=== PATIENT | male | born 1990 | race Two or more races ===

== ENCOUNTER 2016-10-11 02:13 | Emergency (ER) | payer MEDICAID, OTHER ==
[2016-10-11] MEDS ORDERED: HALOPERIDOL LACT 5 MG/ML INJ ONE (02:23)
[2016-10-11] MEDS ORDERED: LORazepam 2 MG/ML INJ ONE (02:23)
--- NOTE | 2016-10-11 02:35 | EDPHY ---
H & P Source: Patient Exam Limitations: No limitations - Medical/Surgical History Hx Asthma: No Hx Chronic Respiratory Disease: No Hx Diabetes: No Hx Cardiac Disease: No Hx Renal Disease: No Hx Cirrhosis: No Hx Alcoholism: No Hx HIV/AIDS: No Hx Splenectomy or Spleen Trauma: No Other PMH: depression, anxiety, bipolar - Family History Significant Family History: No pertinent family hx - Social History Smoking Status: Current every day smoker Alcohol Use: Heavy Drug Use: Other Time Seen by Provider: 10/11/16 02:32 HPI/ROS: CHIEF COMPLAINT: Psychosis HISTORY OF PRESENT ILLNESS: Patient is a 26-year-old man brought from [place] for agitation and psychosis. [place] police state that they are familiar with him and he frequently makes false reports. Yesterday he reported a kidnapping and today he reported a disturbance. He was acting erratically and they decided to bring him in on a M1 hold. The other [facility] hospitals currently on divert. The patient answers questions but is fighting with police. He was restrained on arrival. He denies any health problems. Please states that he uses methamphetamine frequently. Patient denies any trauma. They also report that he has a history of depression and bipolar. REVIEW OF SYSTEMS: unable to obtain secondary to condition EXAM: GENERAL: Angry, wrestling with police HEAD: Atraumatic, normocephalic. EYES: Pupils equal round and reactive to light, extraocular movements intact, sclera anicteric, conjunctiva are normal. ENT: TMs normal, nares patent, oropharynx clear without exudates. Moist mucous membranes. NECK: Normal range of motion, supple without lymphadenopathy or JVD. LUNGS: Breath sounds clear to auscultation bilaterally and equal. No wheezes rales or rhonchi. HEART: Regular rate and rhythm without murmurs, rubs or gallops. ABDOMEN: Soft, nontender, normoactive bowel sounds. No guarding, no rebound. No masses appreciated. BACK: No CVA tenderness, no spinal tenderness, step-offs or deformities EXTREMITIES: Normal range of motion, no pitting or edema. No clubbing or cyanosis. Restrained NEUROLOGICAL: Cranial nerves II through XII grossly intact. Normal speech, normal gait. 5/5 strength, normal movement in all extremities, normal sensation PSYCH: Answers questions appropriately but agitated and illogical, rambling SKIN: Warm, dry, normal turgor, no visible rashes or lesions. (Aris Rodas) Constitutional: Initial Vital Signs Respiratory Rate 20 10/11/16 02:20 O2 Sat (%) 93 10/11/16 02:20 O2 Delivery Mode Room Air Allergies/Adverse Reactions: No Known Allergies Allergy (Unverified 08/22/15 19:50) Home Medications: Medication Instructions Recorded NK [No Known Home Meds] 08/22/15 Medical Decision Making ED Course/Re-evaluation: 0700: Patient signed out to me by Dr. Rodas at shift change. We are awaiting the results of the urinalysis. 1028: I personally evaluated the patient at this time after the nurse told me she thought his left extremities were far colder than his right. He is sleeping , localizes vigorous stimulation. His left hand and distal forearm feels cool relative to the right, his left leg below the knee feels cooler than the right, although the foot is not involved. No change in skin color. On exam he strong bilateral bilateral femoral, radial, dorsalis pedis pulses. Heart is regular. Lungs are clear to auscultation. He was undressed and his skin was examined. He has a midline anterior neck scab with some mild surrounding erythema, no purulent drainage. Trachea is midline. No evidence of track meraz or skin abscesses. 3:00 p.m.: I re-evaluated the patient. All of his extremities are abnormal temperature and color. He has been sleeping throughout the day. Has a blanket over his head when I enter the room. He wakens immediately when I move the blanket off his face. He says, "Get the fuck away from me". He tells me that he is tired. He will not offer any further information. He has not yet provided a urine sample. 3:40 p.m.: I re-evaluated the patient and told him that he needed to wake up and provide a urine sample. He did do so. He admits that he is sleeping off a methamphetamine binge. He will not talk to me about any psychiatric history that he might have. He denies suicidality or homicidality to me. (Shira Walker) 1600 care assumed by me from Dr. Walker pending mental health evaluation. 1635 patient seen by mental health. Patient is not suicidal or homicidal. He is not gravely disabled. He admits to meth use. No acute active psychiatric process at this time. He is farideh for safety. Will discharge with follow -up with his providers in [place]. (Massimo Olivares) 7:00 a.m.. the patient is sedated. We awaiting urinalysis but otherwise he is medically cleared. Since there is report of amphetamine they will likely completed 12 hour observation prior to evaluation. Care transferred to Dr. Shira Walker. (Aris Rodas) Differential Diagnosis: Partial list of the Differential diagnosis considered include but were not limited to; substance abuse, psychosis infection, head injury and although unlikely based on the history and physical exam, I also considered sepsis CVA, acute coronary disease. (Aris Rodas) - Data Points Laboratory Results: Laboratory Results 10/11/16 03:35 10/11/16 03:35 10/11/16 15:38 Urine Opiates Screen NEGATIVE (NEGATIVE) Urine Barbiturates NEGATIVE (NEGATIVE) Ur Phencyclidine Scrn NEGATIVE (NEGATIVE) Ur Amphetamine Screen NON-NEGATIVE H (NEGATIVE) U Benzodiazepines Scrn NEGATIVE (NEGATIVE) Urine Cocaine Screen NEGATIVE (NEGATIVE) U Marijuana (THC) Screen NEGATIVE (NEGATIVE) Medications Given: Discontinued Medications Haloperidol Lactate (Haldol Injection) 10 mg IM EDNOW ONE Stop: 10/11/16 02:41 Last Admin: 10/11/16 02:40 Dose: 10 mg Lorazepam (Ativan Injection) 2 mg IM EDNOW ONE Stop: 10/11/16 02:41 Last Admin: 10/11/16 02:40 Dose: 2 mg Departure - Departure Disposition: Home, Routine, Self-Care Clinical Impression: Polysubstance abuse Condition: Fair Instructions: Polysubstance Abuse (ED) Additional Instructions: Please try to decrease your substance abuse. Referrals: NONE *PRIMARY CARE P,. [Primary Care Provider] - As per Instructions
[2016-10-11] MEDS ORDERED: LORazepam 2 MG/ML INJ IM ONE (02:40)
[2016-10-11] MEDS ORDERED: HALOPERIDOL LACT 5 MG/ML INJ IM ONE (02:40)
[2016-10-11 03:00] VITALS: RESP 16
[2016-10-11 03:42] LABS: % IMMATURE GRANULYOCYTES 0.3 % (0.0-1.1); ABSOLUTE IMMATURE GRANULOCYTES 0.02 10^3/uL (0.00-0.10); ADD DIFF? NO; ADD MORPH? NO; ADD SCAN? NO; ATYPICAL LYMPHOCYTE FLAG 0 (0-99); FRAGMENT RBC FLAG 0 (0-99); HEMATOCRIT 43.2 % (40.0-51.0); HEMOGLOBIN 14.1 g/dL (13.7-17.5); LEFT SHIFT FLG 0 (0-99); LIPEMIA HEMOLYSIS FLAG 80 (0-99); MEAN CELL HEMOGLOBIN 28.7 pg (27.9-34.1); MEAN CELL HEMOGLOBIN CONCENTR. 32.6 g/dL (32.4-36.7); MEAN CELL VOLUME 87.8 fL (81.5-99.8); MEAN PLATELET VOLUME 10.3 fL (8.7-11.7); PLATELET CLUMPS FLAG 10 (0-99); PLATELET COUNT 160 10^3/uL (150-400); RED BLOOD CELL COUNT 4.92 10^6/uL (4.40-6.38); RED CELL DISTRIBUTION WIDTH 13.7 % (11.5-15.2)
[2016-10-11 03:52] LABS: ANION GAP 10 mEq/L (8-16); CALCIUM 8.9 mg/dL (8.5-10.4); CARBON DIOXIDE 24 mEq/l (22-31); CHLORIDE 109 mEq/L (97-110); CREATININE 0.8 mg/dL (0.7-1.3); ETHANOL SERUM < 10 mg/dL (0-10); GLOMERULAR FILTRATION RATE > 60; GLUCOSE 121 mg/dL (70-100); POTASSIUM 3.7 mEq/L (3.5-5.2); SODIUM 143 mEq/L (134-144)
[2016-10-11 10:23] VITALS: TEMP 98.2
[2016-10-11 16:53] VITALS: BP 101/77; PULSE 95; O2SAT 95
== END 2016-10-11 17:03 | disposition home or self-care (01) ==
DX: F19.10 Other psychoactive substance abuse, uncomplicated (principal); F17.200 Nicotine dependence, unspecified, uncomplicated
CPT/HCPCS: 80305; G0480; J2060